=== PATIENT | female | born 1985 | race Caucasian/White ===

== ENCOUNTER 2018-06-02 06:09 | Day surgery (SDC) | payer OTHER ==
[2018-06-02] MEDS ORDERED: LIDOCAINE 4% SOLUTION 50 ML BTL (07:26)
[2018-06-02] MEDS ORDERED: FENTAnyl 50 MCG/ML VIAL (08:35)
[2018-06-02] MEDS ORDERED: MIDAZOLAM 1 MG/ML 2 ML INJ ×2 (08:35→08:36)
== END 2018-06-02 11:17 | disposition home or self-care (01) ==
LOC: GIL 06:09
DX: K21.0 Gastro-esophageal reflux disease with esophagitis (principal); K29.50 Unspecified chronic gastritis without bleeding
CPT/HCPCS: 43239; 88305; 88312; 88313